=== PATIENT | male | born 2005 | race Caucasian/White ===

== ENCOUNTER 2024-02-06 23:58 | Emergency (ER) | payer BC ==
[2024-02-07] MEDS ORDERED: diphenhydrAMINE 50 MG/ML VIAL ONE (00:49)
[2024-02-07] MEDS ORDERED: Prochlorperazine 10 MG/2 ML VIAL ONE (00:50)
[2024-02-07] MEDS ORDERED: Magnesium 2 GM/50 ML BAG (IN WATER) ONE (00:50)
== END 2024-02-07 01:56 | disposition home or self-care (01) ==
LOC: CSHERS 23:58
DX: G43.909 Migraine, unspecified, not intractable, without status migrainosus (principal); I10 Essential (primary) hypertension
CPT/HCPCS: 70450; 96365; 96375; J0780; J1200; J3475

== ENCOUNTER 2024-03-15 17:01 | Emergency (ER) | payer BC ==
[~2024-03-15 17:01] MED LIST: Iopamidol 370 76% 100 ML VIAL ONE
[2024-03-15] MEDS ORDERED: Prochlorperazine 10 MG/2 ML VIAL ONE (18:32)
[2024-03-15] MEDS ORDERED: diphenhydrAMINE 50 MG/ML VIAL ONE ×2 (18:32→19:27)
[2024-03-15 18:56] LABS: #Basophils 0.02 10x3/uL (0.0-0.2); #Eosinophils 0.02 10x3/uL (0.0-0.5); #Monocytes 0.83 10x3/uL (0.0-1.1); #Neutrophils 6.66 10x3/uL (1.5-8.4); %Basophils 0.2 % (0.0-2.0); %Eosinophils 0.2 % (0.0-6.0); %Lymphocytes 12.5 % (18.0-47.0); %Monocytes 9.6 % (0.0-10.0); ALT (SGPT) 31 U/L (8-55); AST (SGOT) 49 U/L (5-34); Albumin 3.8 g/dL (3.5-5.0); Alkaline Phosphatase 69 U/L (50-130); Anion Gap 13 mmol/L (10-20); BUN (Urea Nitrogen) 11 mg/dL (8.9-20.6); Calc. Creatinine Clearance 0 mL/min (70-130); Carbon Dioxide 26 mmol/L (22-29); Chloride 99 mmol/L (98-107); Estimated GFR 96; Glucose 123 mg/dL (70-105); Hemoglobin 13.7 g/dL (13.5-17.5); Mean Corpuscular HGB CONC 33.4 g/dL (32.0-36.0); Mean Corpuscular Hemoglobin 28.3 pg (27.0-33.0); Mean Corpuscular Volume 84.7 fL (81.2-95.1); Mean Platelet Volume 9.6 fL (7.4-10.4); Platelet Count 190 10x3/uL (150-450); Protein, Total 6.8 g/dL (6.0-8.3); RBC Distribution Width 12.5 % (11.5-14.5); Red Blood Cell (RBC) Count 4.84 10x6/uL (4.32-5.72); Sodium 134 mmol/L (136-145); White Blood Cell (WBC) Count 8.7 10x3/uL (3.5-10.5)
[2024-03-15] MEDS ORDERED: Acetaminophen 500 MG TAB ONE (19:22)
[2024-03-15 19:23] LABS: INR-International Normal Ratio 1.1; PTT 33.3 sec (22.0-33.0); Prothrombin Time 11.9 sec (9.5-12.1)
[2024-03-15] MEDS ORDERED: Ketorolac Tromethamine 30 MG (1 mL) VIAL ONE (20:13)
[2024-03-15] MEDS ORDERED: methylPREDNISolone Sod Succ/PF 125 MG/2 ML VIAL ONE (20:13)
[2024-03-15] MEDS ORDERED: Magnesium 2 GM/50 ML BAG (IN WATER) ONE (20:14)
== END 2024-03-15 21:15 | disposition home or self-care (01) ==
LOC: CSHERS 17:01
DX: G43.909 Migraine, unspecified, not intractable, without status migrainosus (principal); I10 Essential (primary) hypertension
CPT/HCPCS: 36415; 70450; 70460; 80053; 83605; 84443; 85025; 85610; 85730; 87040; 96365; 96375; 96376; J0780; J1200; J1885; J2919; J3475; Q9967